=== PATIENT | male | born 1995 | race African-American/Black ===

== ENCOUNTER → 2020-03-15 | Outpatient (CLI) | payer OTHER ==
[~2020-03-15] MED LIST: COVID-19 VACC, MRNA(MODERNA)/PF 100 MCG/0.5 ML VIAL IM ONE
== END | disposition home or self-care (01) ==
LOC: VACCPMC 18:00
DX: Z23 Encounter for immunization (principal); Z20.822 Contact with and (suspected) exposure to COVID-19

== ENCOUNTER → 2020-04-18 | Outpatient (CLI) | payer OTHER | END | DRG 951 | LOC: VACCPMC 04:20 | DX: Z23 Encounter for immunization (principal); Z20.822 Contact with and (suspected) exposure to COVID-19 | CPT/HCPCS: 0012A; 91301 ==

== ENCOUNTER 2024-09-02 20:40 | Emergency (ER) | payer SELFPAY ==
[~2024-09-02] VITALS: Ht 180.3 cm; Wt 140.6 kg
[2024-09-02 20:46] VITALS: PULSE 96; RESP 19; TEMP 99.8
[2024-09-02] MEDS ORDERED: TRAMADOL HCL 50 MG TAB ONE (20:54)
[2024-09-02] MEDS: TRAMADOL HCL 50 MG TAB PO STA (20:56)
[2024-09-02] MEDS ORDERED: ULTRAM 50MG50 MG PO (22:48)
[2024-09-02 23:05] VITALS: BP 136/92; PULSE 87; RESP 16; TEMP 98.8; O2SAT 100
== END 2024-09-02 23:03 | disposition home or self-care (01) ==
LOC: ER 20:47
DX: M25.561 Pain in right knee (principal); X50.1XXA Overexertion from prolonged static or awkward postures, initial encounter; Y93.01 Activity, walking, marching and hiking; Y92.89 Other specified places as the place of occurrence of the external cause
CPT/HCPCS: 99284